=== PATIENT | male | born 1990 | race Caucasian/White ===

== ENCOUNTER 2021-03-10 12:25 | Emergency (ER) | payer BC ==
[2021-03-10 13:42] LABS: Absolute Lymphocytes (CBC) 1.9 K/uL (0.7-4.9); Basophils % 0.5 % (0-1.3); Hematocrit 46.8 % (39.6-49.0); Lymphocytes % 27.9 % (15.3-44.8); MPV 11.2 fL (7.6-11.3); RBC Red Blood Cell Count 5.21 M/uL (4.33-5.43)
[2021-03-10 13:43] LABS: Protime INR 0.99
[2021-03-10 14:00] LABS: ALT/SGPT 68 U/L (12-78); AST/SGOT 34 U/L (15-37); Albumin 4.2 g/dL (3.4-5.0); Alkaline Phosphatase 61 U/L (45-117); BUN Blood Urea Nitrogen 11 mg/dL (7-18); Bicarbonate 28 mmol/L (21-32); Bilirubin Direct 0.2 mg/dL (0-0.2); Bilirubin Total 0.6 mg/dL (0.2-1.0); Glucose Level 87 mg/dL (74-106); Magnesium 1.9 mg/dL (1.8-2.4); NT PRO-BNP 30 pg/mL (<125); Potassium 3.7 mmol/L (3.5-5.1); Protein, Total 8.6 g/dL (6.4-8.2); Sodium Level 142 mmol/L (136-145); Troponin (Emerg Dept Use Only) < 0.02 ng/mL (0.0-0.045)
--- NOTE | 2021-03-10 15:02 | RAD REPORT ---
EXAM DESCRIPTION: RAD - Chest Single View - 03/10/2021 2:26 pm CLINICAL HISTORY: CHEST PAIN COMPARISON: None TECHNIQUE: AP portable chest image was obtained 03/10/2021 2:26 pm . FINDINGS: Lungs are clear. Heart and vasculature are normal. No measurable pleural effusion and no p neumothorax. No acute bony abnormality seen. No acute aortic findings suspected. IMPRESSION: No acute cardiopulmonary process.
[2021-03-10] MEDS ORDERED: ASPIRIN 81 MG CHEWABLE TABLET ONE (17:55)
--- NOTE | 2021-03-10 18:12 | RAD REPORT ---
EXAM DESCRIPTION: CT - Head Brain Wo Cont - 03/10/2021 6:01 pm CLINICAL HISTORY: left sided weakness COMPARISON: No comparisons TECHNIQUE: Axial 5 mm thick images of the head were obtained without IV contrast. All CT scans are performed using dose optimization technique as appropriate and may include automated exposure control or mA/KV adjustment according to patient size. FINDINGS: No intracranial hemorrhage, mass, edema or shift of mid-line structures. No acute infarcti on changes seen. No abnormal extra-axial fluid collections. Ventricles are normal. Mastoid air cells and visualized portions of the paranasal sinuses are clear. No acute bony findings. IMPRESSION: Negative non-contrast CT head examination.
--- NOTE | 2021-03-10 18:33 | ER ---
Nurse's Notes [facility] Name: Melchor Thomas Age: 30 yrs Sex: Male : 1990 Arrival Date: 03/10/2021 Time: 12:27 Bed 6 Private MD: Diagnosis: Presentation: 03/10 12:47 Chief complaint: Friend and/or Co-Worker states: Left sided chest pain, non-radiating, jl7 started 1145, pt reports pain is gone but feels heart beating hard. Coronavirus screen: Client denies travel out of the [place] in the last 14 days. At this time, the client does not indicate any symptoms associated with coronavirus-19. Ebola Screen: No symptoms or risks identified at this time. Initial Sepsis Screen: Does the patient meet any 2 criteria? No. Patient's initial sepsis screen is negative. Does the patient have a suspected source of infection? No. Patient's initial sepsis screen is negative. Risk Assessment: Do you want to hurt yourself or someone else? Patient reports no desire to harm self or others. Onset of symptoms was March 10, 2021 at 11:45. Care prior to arrival: None. 12:47 Method Of Arrival: Wheelchair jl7 12:47 Acuity: ELZBIETA 2 jl7 Historical: - Allergies: 12:49 No Known Allergies; jl7 - Home Meds: 12:49 Allopurinol Oral [Active]; jl7 - PMHx: 12:49 Gout; jl7 - Immunization history:: Adult Immunizations unknown. - Social history:: Smoking status: Patient denies any tobacco usage or history of. Screenin:42 Abuse screen: Denies threats or abuse. Denies injuries from another. Nutritional kg screening: No deficits noted. Tuberculosis screening: No symptoms or risk factors identified. Fall Risk None identified. No fall in past 12 months (0 pts). No secondary diagnosis (0 pts). IV access (20 points). Ambulatory Aid- None/Bed Rest/Nurse Assist (0 pts). Gait- Normal/Bed Rest/Wheelchair (0 pts) Mental Status- Oriented to own ability (0 pts). Total Grant Fall Scale indicates No Risk (0-24 pts). Assessment: 17:38 General: Appears in no apparent distress. Behavior is calm, cooperative, appropriate kg for age, quiet. Pain: Denies pain. Pain does not radiate. Pain began. Neuro: Reports numbness in left side of head, left arm and left leg since 1200. Cardiovascular: No deficits noted. Heart tones S1 S2 Capillary refill < 3 seconds Pulses are all present. Rhythm is regular. Respiratory: No deficits noted. Airway is patent Respiratory effort is even, unlabored, relaxed, Respiratory pattern is regular, symmetrical, GI: No deficits noted. : No deficits noted. EENT: No deficits noted. Derm: No deficits noted. Vital Signs: 12:47 BP 122 / 88; Pulse 76; Resp 24; Temp 97.1; Pulse Ox 100% ; Weight 108.86 kg; Pain 0/10; jl7 17:00 BP 136 / 57; Pulse 56; Resp 20; Pulse Ox 97% on R/A; kg 18:00 BP 135 / 88; Pulse 53; Resp 20; Pulse Ox 97% on R/A; kg ED Course: 12:27 Patient arrived in ED. mr 12:49 Triage completed. jl7 12:49 Arm band placed on right wrist. jl7 14:26 XRAY Chest (1 view) In Process Unspecified. EDMS 17:09 Shari Cortes is Primary Nurse. kg 17:09 Kevyn Humphries PA is PHCP. deejay 17:09 Rigoberto Schmitz MD is Attending Physician. jmm 17:39 Inserted saline lock: 20 gauge in right antecubital area, using aseptic technique. kg 17:43 Patient has correct armband on for positive identification. Bed in low position. Call kg light in reach. Side rails up X2. color television console monitor on. Pulse ox on. NIBP on. 17:44 Patient maintains SpO2 saturation greater than 95% on room air. kg 18:01 CT Head Brain wo Cont In Process Unspecified. EDMS 18:30 No provider procedures requiring assistance completed. IV discontinued, intact, kg bleeding controlled, No redness/swelling at site. Pressure dressing applied. 19:05 Primary Nurse role handed off by Shari Cortes Administered Medications: 17:37 Drug: Aspirin Chewable Tablet 324 mg Route: PO; kg 18:15 Follow up: Response: No adverse reaction; Marked relief of symptoms kg Outcome: 18:31 AMA AMA form signed kg 18:31 Condition: stable 18:32 Patient left the ED. kg 19:20 Patient left the ED. ae4 Signatures: Dispatcher [employer] EDMS Kevyn Humphries PA PA jmm Rivera, Mary mr Davion Mason RN RN jl7 Radames Reynolds RN RN ae4 Shari Cortes kg
--- NOTE | 2021-03-10 18:33 | EDPHYS ---
Physician Documentation [facility] Name: Melchor Thomas Age: 30 yrs Sex: Male : 1990 Arrival Date: 03/10/2021 Time: 12:27 Bed 6 Private MD: ED Physician Rigoberto Schmitz HPI: 03/10 18:28 This 30 yrs old Male presents to ER via Wheelchair with complaints of Chest jm Pain, Slurred Speech. 18:28 The patient or guardian reports chest pain that is located primarily in the substernal [facility] area. 18:28 The patient presents with a history of heart racing. Onset: The symptoms/episode jmm began/occurred acutely, 4 hour(s) ago. Duration: The patient or guardian reports a single episode. Modifying factors: The symptoms are aggravated by nothing. The symptoms are alleviated by nothing. 19:08 This is a 30 year old male with no chronic medical conditions that presents to the ED jm with complaints of acute onset left arm paresthesias. Facial numbness beginning just prior to arrival. Also complains of difficulty with speech. . Historical: - Allergies: 12:49 No Known Allergies; jl7 - Home Meds: 12:49 Allopurinol Oral [Active]; jl7 - PMHx: 12:49 Gout; jl7 - Immunization history:: Adult Immunizations unknown. - Social history:: Smoking status: Patient denies any tobacco usage or history of. ROS: 19:08 Constitutional: Negative for fever, chills, and weight loss. jmm 19:08 Cardiovascular: Positive for palpitations. 19:08 Neuro: Positive for speech changes. 19:08 All other systems are negative. Exam: 19:08 Constitutional: This is a well developed, well nourished patient who is awake, alert, jmm and in no acute distress. Head/Face: atraumatic. Eyes: EOMI, no conjunctival erythema appreciated ENT: Moist Mucus Membranes Neck: Trachea midline, Supple Chest/axilla: Normal chest wall appearance and motion. Cardiovascular: Regular rate and rhythm. No edema appreciated Respiratory: Normal respirations, no respiratory distress appreciated Abdomen/GI: Non distended, soft Back: Normal ROM Skin: General appearance color normal MS/ Extremity: Moves all extremities, no obvious deformities appreciated, no edema noted to the lower extremities Neuro: Awake and alert, normal gait Psych: Behavior is normal, Mood is normal, Patient is cooperative and pleasant Vital Signs: 12:47 BP 122 / 88; Pulse 76; Resp 24; Temp 97.1; Pulse Ox 100% ; Weight 108.86 kg; Pain 0/10; jl7 17:00 BP 136 / 57; Pulse 56; Resp 20; Pulse Ox 97% on R/A; kg 18:00 BP 135 / 88; Pulse 53; Resp 20; Pulse Ox 97% on R/A; kg MDM: 17:24 Patient medically screened. vamsi 19:05 Data reviewed: vital signs, nurses notes. Counseling: I had a detailed discussion with deejay the patient and/or guardian regarding: the historical points, exam findings, and any diagnostic results supporting the discharge/admit diagnosis, lab results, the need for further work-up and treatment in the hospital. ED course: Dr. Schmitz contacted the patient. Will return for admission. . 03/10 12:57 Order name: Basic Metabolic Panel; Complete Time: 17:08 [facility] 03/10 12:57 Order name: CBC with Diff; Complete Time: 17:08 [facility] 03/10 12:57 Order name: LFT's; Complete Time: 17:08 [facility] 03/10 12:57 Order name: Magnesium; Complete Time: 17:08 [facility] 03/10 12:57 Order name: NT PRO-BNP; Complete Time: 17:08 03/10 12:57 Order name: PT-INR; Complete Time: 17:08 [facility] 03/10 12:57 Order name: Troponin (emerg Dept Use Only); Complete Time: 17:08 [facility] 03/10 12:57 Order name: XRAY Chest (1 view); Complete Time: 17:08 [facility] 03/10 12:57 Order name: EKG; Complete Time: 12:58 [facility] 03/10 12:57 Order name: Cardiac monitoring [facility] 03/10 12:57 Order name: EKG - Nurse/Tech; Complete Time: 12:58 [facility] 03/10 12:57 Order name: IV Saline Lock 03/10 17:26 Order name: CT Head Brain wo Cont; Complete Time: 18:13 [facility] 03/10 12:57 Order name: Labs collected and sent [facility] 03/10 12:57 Order name: O2 Per Protocol [facility] 03/10 12:57 Order name: O2 Sat Monitoring jl7 Administered Medications: 17:37 Drug: Aspirin Chewable Tablet 324 mg Route: PO; kg 18:15 Follow up: Response: No adverse reaction; Marked relief of symptoms kg Disposition: 03/11 07:31 Co-signature as Attending Physician, Rigoberto Schmitz MD I agree with the assessment and vamsi plan of care. Disposition: 03/10/21 18:32 Patient has left against medical advice. - Patients states they are going to Home. - Condition is Stable. Signatures: Dispatcher [employer] EDRigoberto Newton MD MD cha Mickail, Joel, PA PA jmm Leal, Jahala RN RN jl7 Radames Reynolds RN RN ae4 Shari Cortes kg Corrections: (The following items were deleted from the chart) 03/10 19:20 18:32 03/10/2021 18:32 Patients has left against medical advice. Patient states they ae4 are going to Home. Condition is Stable. kg
[2021-03-10 18:39] VITALS: TEMP 97.1
[2021-03-10 18:41] VITALS: O2SAT 97
[2021-03-10 18:42] VITALS: BP 135/88
--- NOTE | 2021-03-11 11:58 | EKG ---
Test Date: 2021-03-10 Test Time: 12:36:30 Ups Driver: NO MEASUREMENT RESULTS: Intervals: Rate: 86 [place]: QRSD: 170 QT: 448 QTc: 536 [place]: P: [place]: QRS: -48 T: 116 INTERPRETIVE STATEMENTS: Wide QRS rhythm Left axis deviation Left bundle branch block Abnormal ECG No previous ECG available for comparison Electronically Signed On 03-11-21 11:54:07 CDT by Yamil Tejeda
== END 2021-03-10 19:20 | disposition left against medical advice (07) ==
LOC: ER 12:25
DX: R07.9 Chest pain, unspecified (principal); Z53.29 Procedure and treatment not carried out because of patient's decision for other reasons; R47.81 Slurred speech; M10.9 Gout, unspecified
CPT/HCPCS: 36415; 70450; 71045; 80048; 80076; 83735; 83880; 84484; 85025; 85610; 93005; 99285

== ENCOUNTER 2021-03-10 19:22 | Observation (INO) | payer BC ==
--- OUTSIDE RECORDS SUMMARY | 2021-03-10 19:25 | XMS REPORT | Continuity of Care Document ---
:1990 Author Organization [facility] t Address [address] [place] [address] Care Team Providers Name Role Phone Jayda De La Rosa Attending Clinician Gerardo Attending Clinician Bari Nevarez Attending Clinician Problems Condition Condition Condition Status Onset Resolution Last Treating Co mments Source Name Details Category Date Date Treatment Clinician Date FLU LIKE Diagnosis Active 2019-01-30 M emoria 01-30 20:58:00 l FLU LIKE 00:00: Marco n 00 Active 01/30/2019 [facility] EAR PAIN Diagnosis Active 2019-01-09 M emoria 01-09 08:48:00 l EAR PAIN 00:00: Marco n 00 Active 01/09/2019 [facility] Ankle pain Problem Active 2021-02-20 M emoria (finding) 21:17:55 l Ankle [facility] pain (finding) Active Problem [facility] Family Problem Active 2021-02-20 [facility] history: 21:17:55 l Gout Family Crow (context-d history: ependent Gout category) (context-d ependent category) Active Problem 02/20/2021 [facility] Gastroesop Problem Active 2021-02-20 M emoria hageal 21:17:55 l reflux Crow disease Gastroesop (disorder) hageal reflux disease (disorder) Active Problem 02/20/2021 [facility] Gout Problem Active 2021-02-20 [facility] (disorder) 21:17:55 l Gout [facility] (disorder) Active Problem 02/20/2021 [facility] Hepatitis Problem Active 2021-02-20 Me moria B 21:17:55 l screening Crow required Hepatitis (finding) B screening required (finding) Active Problem 02/20/2021 [facility] Hyperurice Problem Active 2021-02-20 M emoria scott 21:17:55 l (disorder) Marco n Hyperurice scott (disorder) Active Problem 02/20/2021 [facility] Liver Problem Active 2021-02-20 [facility] enzymes 21:17:55 l abnormal Liver [facility] (finding) enzymes abnormal (finding) Active Problem 02/20/2021 [facility] Patient Problem Active 2021-02-20 Ge sarai encounter 21:17:55 l status Patient [facility] (finding) encounter status (finding) Active Problem 02/20/2021 [facility] Screening Problem Active 2021-02-20 Me moria status 21:17:55 l (finding) Crow Screening status (finding) Active Problem 02/20/2021 [facility] Simple Problem Active 2021-02-20 [facility] obesity 21:17:55 l (disorder) Simple Herm alok obesity (disorder) Active Problem 02/20/2021 [facility] Swollen Problem Active 2021-02-20 Ge sarai ankle 21:17:55 l (finding) Swollen Herm alok ankle (finding) Active Problem 02/20/2021 [facility] Viral Problem Active 2021-02-20 [facility] screening 21:17:55 l status Viral Crow (finding) screening status (finding) Active Problem 02/20/2021 [facility] Allergies, Adverse Reactions, Alerts Allergy Allergy Status Severity Reaction(s) Onset Inactive Treating Comm ents Source Name Type Date Date Clinician No Known No Known Active Memori a Medicati Medicati l on on Crow Allergie Allergie s s Social History Social Habit Start Date Stop Date Quantity Comments Source Social History 2020-08-06 2020-08-06 Theo goodman 15:12:12 15:12:12 Smoking Status Start Date Stop Date Source Social [facility] Medications Ordered Filled Start Stop Current Ordering Indication Dosage Frequency Signature Comments Components Source Medication Medication Date Date Medication? Clinician (SIG) Name Name Colchicine 2019-10 Yes 0.6 mg = 1 M emoria 0.6 MG Oral 2-07 tab, PO, l Tablet 18:33: PRN, PRN Crow 00 Pain Score 7-10, # 30 tab, 3 Refill(s), Pharmacy: [facility] #[id number], 190.5, cm, 08/20/20 7:23:00 FRONT OFFICE SPEC, Height, 110.625, kg, 08/20/20 7:23:00 FRONT OFFICE SPEC, Weight Colchicine 2019-10 Yes 0.6 mg = 1 M emoria 0.6 MG Oral 2-03 cap, PO, l Capsule 17:28: PRN, PRN Marco n 00 Pain Score 7-10, Take 1.2 mg poX1, then 0.6 mg po 1 hour later X1, # 30 tab, 0 Refill(s), Pharmacy: [facility] #[id number], 190.5, cm, 08/20/20 7:23:00 FRONT OFFICE SPEC, Height, 110.625, kg, 08/20/20 7:23:00 FRONT OFFICE SPEC, Weight Colchicine 2019-10 Yes 0.6 mg = 1 M emoria 0.6 MG Oral 0-28 cap, PO, l Capsule 15:52: PRN, PRN Marco n 00 Pain Score 7-10, Take 1.2 mg poX1, then 0.6 mg po 1 hour later X1, # 30 tab, 0 Refill(s), Pharmacy: [facility] #[id number], 187.96, cm, 08/06/20 10:05:00 CDT, Height, 110.142, kg, 08/06/20 10:05:00 CDT, Weight omeprazole 2019-10 Yes 40 mg = 1 Me moria 40 mg oral 0-28 cap, PO, l delayed 15:52: Daily, # Marco n release 00 30 cap, 1 capsule Refill(s), Pharmacy: [facility] #[id number], 187.96, cm, 08/06/20 10:05:00 CDT, Height, 110.142, kg, 08/06/20 10:05:00 CDT, Weight indomethaci 2019-10 Yes 25 mg = 1 M emoria n 25 mg 0-28 cap, PO, l oral 15:14: TID, 0 Crow capsule 00 Refill(s) Dexamethaso No 10 mg, Ge sarai ne 01-09 Route: IM, l 13:42: ONCE, [facility] 00 Dosing Weight 106.818, kg, Priority: STAT, Start date: 01/09/19 8:42:00 CDT, Stop date: 01/09/19 8:42:00 CDT Ibuprofen 2019-0 No 800 mg, Memor ia 01-09 Route: PO, l 13:42: Drug form: Castell 00 TAB, ONCE, Dosing Weight 106.818, kg, Priority: STAT, Start date: 01/09/19 8:42:00 CDT, Stop date: 01/09/19 8:42:00 CDT Vital Signs Vital Name Observation Time Observation Value Comments Source Systolic (mm Hg) 2020-08-20 13:18:00 Ge rial Crow Diastolic (mm Hg) 2020-08-20 13:18:00 Mem o[facility] Crow Heart Rate 2020-08-20 13:18:00 [facility] Temperature Oral (F) 2020-08-20 13:18:00 97.2 F [facility] Height 2020-08-20 13:18:00 190.5 cm [facility] Weight 2020-08-20 13:18:00 [facility] BMI Calculated 2020-08-20 13:18:00 Memori al Crow Systolic (mm Hg) 2020-08-06 14:56:00 Ge rial Castell Diastolic (mm Hg) 2020-08-06 14:56:00 Mem o[facility] Crow Heart Rate 2020-08-06 14:56:00 [facility] Temperature Oral (F) 2020-08-06 14:56:00 97.2 F [facility] Height 2020-08-06 14:56:00 187.96 cm [facility] Weight 2020-08-06 14:56:00 [facility] BMI Calculated 2020-08-06 14:56:00 [facility] BMI Calculated 2019-01-31 01:47:00 [facility] Weight 2019-01-31 01:47:00 [facility] Height 2019-01-31 01:47:00 187.96 cm [facility] Systolic (mm Hg) 2019-01-31 01:47:00 Ge rial [facility] Diastolic (mm Hg) 2019-01-31 01:47:00 Mem o[facility] Heart Rate 2019-01-31 01:47:00 [facility] Respitory Rate 2019-01-31 01:47:00 [facility] Temperature Oral (F) 2019-01-31 01:47:00 98.3 F [facility] Heart Rate 2019-01-09 13:21:00 [facility] Systolic (mm Hg) 2019-01-09 13:21:00 Ge rial [facility] Diastolic (mm Hg) 2019-01-09 13:21:00 [facility] Weight 2019-01-09 13:09:00 [facility] BMI Calculated 2019-01-09 13:09:00 [facility] Respitory Rate 2019-01-09 13:09:00 [facility] Temperature Oral (F) 2019-01-09 13:09:00 98.4 F [facility] Height 2019-01-09 13:09:00 187.96 cm [facility] Heart Rate 2019-01-09 13:09:00 [facility] Systolic (mm Hg) 2019-01-09 13:09:00 Ge rial [facility] Diastolic (mm Hg) 2019-01-09 13:09:00 Mem o[facility] Procedures This patient has no known procedures. Encounters Start End Encounter Admission Attending Care Care Encounter Source Date/Time Date/Time Type Type Clinicians Facility Department ID 2021-02-18 2021-02-18 Outpatient [facility] [id number] 08:00:00 08:00:00 Felton Beckwith 2020-09-15 2020-09-16 Outpatient [facility] [id number] 10:55:25 23:59:59 2020-09-11 2020-09-12 Outpatient [facility] [id number] 10:57:02 23:59:59 2020-08-20 2020-08-20 Outpatient [facility] [id number] 07:00:00 23:59:59 Amena Lillian Montelongo 2020-08-06 2020-08-06 Outpatient [facility] [id number] 09:30:00 23:59:59 Yao Beckwith 2019-01-30 2019-01-30 Outpatient Aznaalphonsova-A [facility] [id number] 20:20:00 20:52:00 clarissa Brandon Naomi 2019-01-30 2019-01-30 Emergency E [facility] [id number] [facility] 20:20:00 20:20:00 2019-01-09 2019-01-09 LARRY Farley [facility] [id number] 08:04:00 09:10:00 Valentin Roche 00 Results Test Description Test Time Test Comments Results Result Comments Source CHEM PANEL 2020-08-06 77 [facility] 16:20:00 CHEM PANEL 2020-08-06 15 [facility] 16:20:00 CHEM PANEL 2020-08-06 0.95 [facility] nn 16:20:00 CHEM PANEL 2020-08-06 106 [facility] nn 16:20:00 CHEM PANEL 2020-08-06 123 [facility] nn 16:20:00 CHEM PANEL 2020-08-06 141 [facility] 16:20:00 CHEM PANEL 2020-08-06 4.9 [facility] nn 16:20:00 CHEM PANEL 2020-08-06 103 [facility] nn 16:20:00 CHEM PANEL 2020-08-06 28 [facility] nn 16:20:00 CHEM PANEL 2020-08-06 9.5 [facility] nn 16:20:00 CHEM PANEL 2020-08-06 7.6 [facility] 16:20:00 CHEM PANEL 2020-08-06 4.5 [facility] 16:20:00 CHEM PANEL 2020-08-06 3.1 [facility] nn 16:20:00 CHEM PANEL 2020-08-06 1.5 [facility] nn 16:20:00 CHEM PANEL 2020-08-06 0.7 [facility] nn 16:20:00 CHEM PANEL 2020-08-06 49 [facility] nn 16:20:00 CHEM PANEL 2020-08-06 55 [facility] nn 16:20:00 CHEM PANEL 2020-08-06 47 [facility] nn 16:20:00 CHEM PANEL 2020-08-06 9.3 [facility] nn 16:20:00 HEMATOLOGY 2020-08-06 5.6 [facility] nn 16:20:00 HEMATOLOGY 2020-08-06 5.17 [facility] nn 16:20:00 HEMATOLOGY 2020-08-06 15.6 [facility] nn 16:20:00 HEMATOLOGY 2020-08-06 45.9 [facility] nn 16:20:00 HEMATOLOGY 2020-08-06 88.8 [facility] nn 16:20:00 HEMATOLOGY 2020-08-06 16:20:00 Test Item Value Reference Range Interpretation Comme nts MCH (test code = MCH) 30.2 pg 27.0-33.0 [facility] [id number] 16:20:0034.0[facility] 2020-08-06 16:20:0013.0[facility] DtexzfuCIVQZFGHTT7108-07-03 16:20:85825Aenypqpv HyroojbLQFRBHLURX0532-44-67 16:20:0013.3[facility] KpptyvrIWCDDJPYMA0337-23-38 16:20:371234Rqdkkudx QengmdcURWRYSRBHR2918-81-55 16:20:044903Vwwivtcf [facility] FPLONAZXNT9746-51-00 16:20:87087Iqrzzbnk FouvcyyDYWVGXOZQK9332-80-59 16:20:35626 [facility] MiwdzbzBRUAHXLHSP0201-89-98 16:20:0028[facility]Y 2020-08-06 16:20:0055.9[facility] QdrrouhZPYHEAFMAG5562-56-27 16:20:0030.7[facility] ZelmcxuXFFXRBWNXD0524-41-65 16:20:008.3[facility] RjnynypLXKSGIBRVL1416-79-44 16:20:004.6[facility] UfzioaqUUFUGMBXHF6700-02-36 16:20:000.5[facility] Crow
--- NOTE | 2021-03-10 20:29 | EDPHYS ---
Physician Documentation [facility] Name: Melchor Thomas Age: 30 yrs Sex: Male : 1990 Arrival Date: 03/10/2021 Time: 19:25 Bed 25 Private MD: ED Physician Dany Purvis HPI: 03/10 19:36 This 30 yrs old Male presents to ER via Unassigned with complaints of S/S of jmm Possible Stroke. 19:36 The patient's problem is reported as paresthesias, in left upper extremity, in right jmm side of face, in left side of face, weakness, in the left upper extremity. Onset: The symptoms/episode began/occurred acutely, today. The symptoms are alleviated by nothing. The symptoms are aggravated by nothing. Associated signs and symptoms: Pertinent positives: palpitations. This is a 30 year old male with no chronic medical conditions that presents to the ED with left sided paresthesias, numbness beginning earlier today. Also symptoms began after an episode of palpitations. . Historical: - Allergies: 23:38 No Known Allergies; - Home Meds: 23:38 Allopurinol Oral [Active]; - PMHx: 23:38 Gout; - Immunization history:: Adult Immunizations not up to date. - Social history:: Smoking status: Patient denies any tobacco usage or history of. ROS: 19:36 Constitutional: Negative for fever, chills, and weight loss. [facility] 19:36 Cardiovascular: Positive for palpitations. 19:36 All other systems are negative. Exam: 19:36 Radiologist reports: negative [facility] 19:36 Constitutional: This is a well developed, well nourished patient who is awake, alert, and in no acute distress. Head/Face: atraumatic. Eyes: EOMI, no conjunctival erythema appreciated ENT: Moist Mucus Membranes Neck: Trachea midline, Supple Chest/axilla: Normal chest wall appearance and motion. Cardiovascular: Regular rate and rhythm. No edema appreciated Respiratory: Normal respirations, no respiratory distress appreciated Abdomen/GI: Non distended, soft Back: Normal ROM Skin: General appearance color normal MS/ Extremity: Moves all extremities, no obvious deformities appreciated, no edema noted to the lower extremities Neuro: Awake and alert, normal gait Psych: Behavior is normal, Mood is normal, Patient is cooperative and pleasant Vital Signs: 19:40 BP 122 / 62; Pulse 50; Resp 18; Temp 97.8; Height 6 ft. 3 in. (190.50 cm); Pain 0/10; 20:45 Weight 113.2 kg; 23:00 BP 124 / 79; Pulse 50; Resp 18; Pulse Ox 98% on R/A; 19:40 Body Mass Index 31.19 (113.20 kg, 190.50 cm) NIH Stroke Scale Scores: 19:45 NIHSS Score: 0 21:00 NIHSS Score: 0 MDM: 19:33 Patient medically screened. [facility] 20:26 Data reviewed: vital signs, nurses notes. Counseling: I had a detailed discussion with deejay the patient and/or guardian regarding: the historical points, exam findings, and any diagnostic results supporting the discharge/admit diagnosis, the need for further work-up and treatment in the hospital. ED course: Patient discussed with Emil Huff whom accepted the patient for admission. . 03/10 20:11 Order name: Urine Drug Screen [facility] 03/10 20:28 Order name: COVID-19 : Document "Date of Symptom Onset" if Symptomatic. [facility] 03/10 20:56 Order name: Ptt, Activated 03/10 20:57 Order name: PTT, Activated Partial Thromb [facility] 03/10 21:49 Order name: Urine Dipstick-Ancillary [facility] 03/10 22:15 Order name: SARS-COV-2 RT PCR [facility] 03/10 23:37 Order name: Echo with Doppler [facility] 03/10 23:37 Order name: Stroke Protocol [facility] 03/10 23:37 Order name: Carotid Artery Bilateral [facility] 03/10 20:06 Order name: Saline Lock; Complete Time: 20:20 [facility] 03/10 20:11 Order name: Urine Dipstick-Ancillary (obtain specimen); Complete Time: 21:51 [facility] 03/10 23:31 Order name: CONS Physician Consult [facility] Administered Medications: 20:56 Drug: foLIC Acid 1 mg Route: IVPB; Site: left antecubital; 03/11 00:46 Follow up: Response: No adverse reaction; IV Status: Completed infusion 03/10 20:57 Drug: NS 0.9% 1000 ml Route: IV; Rate: 1 bolus; Site: left antecubital; 03/11 00:46 Follow up: Response: No adverse reaction; IV Status: Completed infusion 03/10 21:05 Drug: HEParin 5000 units {Co-Signature: ap3 (Kinga Ovalle RN).} Route: IV; Rate: wh calculated rate; Site: left antecubital; 03/11 00:47 Follow up: Response: No adverse reaction; IV Status: Completed infusion 03/10 21:07 Drug: Heparin ([place] Drip) 12 units/kg/hr - (HEParin 99677 units, D5W 500 ml) {Co-Signature: ap3 (Kinga Ovalle RN).} Route: IV; Rate: calculated rate; Site: left antecubital; 03/11 00:47 Follow up: Response: No adverse reaction; IV Status: Infusion continued upon admission Disposition: 05:53 Co-signature as Attending Physician, Dany Purvis MD. rn Disposition: 03/10/21 20:28 Hospitalization ordered by Javon Aguilar for Observation. Preliminary diagnosis are Palpitations, Paresthesias. - Bed requested for Telemetry/MedSurg (observation). - Status is Observation. - Condition is Stable. - Problem is new. - Symptoms have improved. NIH Stroke Scale - NIH Stroke Score Date: 03/10/2021 Time: 19:45 Total Score = 0 1a. Level of Consciousness (LOC) - 0(Alert) 1b. Level of Consciousness (LOC) (Year \\T\\ Age) - 0(Both) 1c. LOC Commands (Open \\T\\ Closes Eyes/Real Estate Closing Coordinator) - 0(Both) 2. Best Gaze (Lateral Gaze Paresis) - 0(Normal) 3. Visual Field Loss - 0(No visual loss) 4. Facial Palsy - 0(Normal) 5a. Left Arm: Motor (10-second hold) - 0(No drift) 5b. Right Arm: Motor (10-second hold) - 0(No drift) 6a. Left Leg: Motor (5-second hold - always test supine) - 0(No drift) 6b. Right Leg: Motor (5-second hold - always test supine) - 0(No drift) 7. Limb Ataxia (finger/nose \\T\\ heel/hwang - test with eyes open) - 0(Absent) 8. Sensory Loss (pinprick arms/legs/face) - 0(Normal) 9. Best Language: Aphasia (description/naming/reading) - 0(No aphasia) 10. Dysarthria (speech clarity - read or repeat words) - 0(Normal) 11. Extinction and Inattention (visual/tactile/auditory/spatial/personal) - 0(No abnormality) Initials: NIH Stroke Scale - NIH Stroke Score Date: 03/10/2021 Time: 21:00 Total Score = 0 1a. Level of Consciousness (LOC) - 0(Alert) 1b. Level of Consciousness (LOC) (Year \\T\\ Age) - 0(Both) 1c. LOC Commands (Open \\T\\ Closes Eyes/Real Estate Closing Coordinator) - 0(Both) 2. Best Gaze (Lateral Gaze Paresis) - 0(Normal) 3. Visual Field Loss - 0(No visual loss) 4. Facial Palsy - 0(Normal) 5a. Left Arm: Motor (10-second hold) - 0(No drift) 5b. Right Arm: Motor (10-second hold) - 0(No drift) 6a. Left Leg: Motor (5-second hold - always test supine) - 0(No drift) 6b. Right Leg: Motor (5-second hold - always test supine) - 0(No drift) 7. Limb Ataxia (finger/nose \\T\\ heel/hwang - test with eyes open) - 0(Absent) 8. Sensory Loss (pinprick arms/legs/face) - 0(Normal) 9. Best Language: Aphasia (description/naming/reading) - 0(No aphasia) 10. Dysarthria (speech clarity - read or repeat words) - 0(Normal) 11. Extinction and Inattention (visual/tactile/auditory/spatial/personal) - 0(No abnormality) Initials: Signatures: Dispatcher [employer] EDMS Kevyn Humphries PA PA Dany Rivera MD MD rn Garcia, Cindy, RN RN cg Habalo, Winsy, RN RN Kinga Ovalle RN ap3 Corrections: (The following items were deleted from the chart) 03/10 20:36 20:28 Hospitalization Ordered by Mitch De La Vega MD for Observation. Preliminary [facility] diagnosis is Palpitations; Paresthesias. Bed requested for Telemetry/MedSurg (observation). Status is Observation. Condition is Stable. Problem is new. Symptoms have improved. [facility] 21:17 20:29 CORONAVIRUS ordered. EDMS EDMS 03/11 00:22 06 20:36 03/10/2021 20:28 Hospitalization Ordered by Javon Aguilar for Observation. Preliminary diagnosis is Palpitations; Paresthesias. Bed requested for Telemetry/MedSurg (observation). Status is Observation. Condition is Stable. Problem is new. Symptoms have improved. [facility] 03/11 00:58 00:22 03/10/2021 20:28 Hospitalization Ordered by Javon Aguilar for Observation. Preliminary diagnosis is Palpitations; Paresthesias. Bed requested for Telemetry/MedSurg (observation). Status is Observation. Condition is Stable. Problem is new. Symptoms have improved. cg
[2021-03-10] MEDS ORDERED: HEPARIN 5000 UNIT/ML 1 ML VIAL ONE (21:11)
[2021-03-10] MEDS ORDERED: HEPARIN/D5W 25,000 UNIT/500 ML BAG IV ONE (21:11)
[2021-03-10] MEDS ORDERED: NA CHLORIDE 0.9% 1,000 ML ONE (21:12)
[2021-03-10] MEDS ORDERED: FOLIC ACID 5 MG/ML VIAL ONE (21:13)
[2021-03-10 21:50] LABS: Urine Blood Negative (Negative); Urine Glucose Negative (Negative); Urine Protein Negative (Negative); Urine pH 7.5 (5.0-7.0)
[2021-03-10 22:15] LABS: Barbiturates NEGATIVE (NEGATIVE); Benzodiazepines NEGATIVE (NEGATIVE); Cocaine NEGATIVE (NEGATIVE); METHAMPHETAM NEGATIVE (NEGATIVE); Methadone NEGATIVE (NEGATIVE); Opiates NEGATIVE (NEGATIVE); Phencyclidine NEGATIVE (NEGATIVE); THC Cannibis NEGATIVE (NEGATIVE)
[2021-03-10] MEDS ORDERED: HEPARIN/D5W 25,000 UNIT/500 ML BAG IV SCH (23:45)
--- NOTE | 2021-03-11 00:59 | ER ---
Nurse's Notes [facility] Name: Melchor Thomas Age: 30 yrs Sex: Male : 1990 Arrival Date: 03/10/2021 Time: 19:25 Bed 25 Private MD: Diagnosis: Palpitations;Paresthesias Presentation: 03/10 19:40 Chief complaint: Pt was here earlier advised for admission but Pt signed AMA. Pt was C/O lightheartedness, numbness, weakness on left side, slurred speech, and palpitations. 19:40 Coronavirus screen: Client denies travel out of the [place] in the last 14 days. At this time, the client does not indicate any symptoms associated with coronavirus-19. Ebola Screen: Patient negative for fever greater than or equal to 101.5 degrees Fahrenheit, and additional compatible Ebola Virus Disease symptoms Patient denies exposure to infectious person. No acute neurological deficit is noted. Pre-hospital glucose is not applicable to this patient. Initial Sepsis Screen: Does the patient meet any 2 criteria? No. Patient's initial sepsis screen is negative. Does the patient have a suspected source of infection? No. Patient's initial sepsis screen is negative. Risk Assessment: Do you want to hurt yourself or someone else? Patient reports no desire to harm self or others. Onset of symptoms was March 10, 2021. 19:40 Method Of Arrival: Ambulatory 19:40 Acuity: ELZBIETA 3 Historical: - Allergies: 23:38 No Known Allergies; - Home Meds: 23:38 Allopurinol Oral [Active]; - PMHx: 23:38 Gout; - Immunization history:: Adult Immunizations not up to date. - Social history:: Smoking status: Patient denies any tobacco usage or history of. Screenin:45 Abuse screen: Denies threats or abuse. Denies injuries from another. Nutritional screening: No deficits noted. Tuberculosis screening: No symptoms or risk factors identified. VAN Screening: Arm Drift: Patient shows no arm weakness. Visual Disturbance: No visual disturbance noted. Aphasia: No aphasia noted. Neglect: No neglect noted. Fall Risk None identified. Assessment: 19:50 VAN Scoring: Arm Drift: Patients demonstrates NO arm weakness. Patient is VAN Negative. Visual Disturbance: No visual disturbance noted. Aphasia: No aphasia noted. Neglect: No neglect noted. 20:00 General: Appears in no apparent distress. Behavior is calm, cooperative, appropriate wh for age. Pain: Denies pain. Neuro: Level of Consciousness is awake, alert, obeys commands, Oriented to person, place, time, situation, Appropriate for age Rhinestone Setter are equal bilaterally Moves all extremities. Gait is steady, Speech is normal, Facial symmetry appears normal, Pupils are PERRLA, Intact. Neuro: Reports paresthesias. Cardiovascular: Heart tones S1 S2. Respiratory: Airway is patent Respiratory effort is even, unlabored, Respiratory pattern is regular, symmetrical, Breath sounds are clear bilaterally. GI: Abdomen is flat, non-distended. : No signs and/or symptoms were reported regarding the genitourinary system. EENT: No signs and/or symptoms were reported regarding the EENT system. Derm: Skin is intact, is healthy with good turgor, Skin is pink, warm \T\ dry. normal. Musculoskeletal: Circulation, motion, and sensation intact. 21:00 Patient has been NPO before screening. The patient is alert, and able to follow commands. The patient does not exhibit slurred or garbled speech. The patient is not exhibiting difficulty speaking. The patient does not exhibit difficulty understanding words. The patient is able to swallow own secretions with no drooling or need for suction. Patient tolerated one teaspoon of water. No drooling, immediate coughing, gurgling, or clearing of the throat was noted. The patient tolerated 90mL of water. No drooling, immediate coughing, gurgling, or clearing of the throat was noted. The patient passed the bedside swallow screening. Oral medications may be given as ordered. Contact Physician for further diet orders. Provider notified of bedside swallow screening results: Dany Purvis MD. T-PA (Activase) Screening:. 21:00 Reassessment: Patient appears in no apparent distress at this time. No changes from previously documented assessment. Patient and/or family updated on plan of care and expected duration. Pain level reassessed. Patient is alert, oriented x 3, equal unlabored respirations, skin warm/dry/pink. 23:15 Reassessment: PTT was drawn at 2100 prior to starting Heparin drip, around 2200 Lab notified for a redraw, redraw was done but Heparin Bolus was already given and drip was running for an hour already. 22:50 Lab alert on PTT of 155.7, notified MD regarding when the redraw was taken, and MD instructed to just follow protocol. Per Protocol Pt was running on 20 ml/hr, adjusted to 16 ml/hr. Repeat PTT to be done at 1:00 am. Hospitalist Emil notified. . 23:30 Reassessment: Patient appears in no apparent distress at this time. Provider at bedside explaining POC need for admit. Vital Signs: 19:40 BP 122 / 62; Pulse 50; Resp 18; Temp 97.8; Height 6 ft. 3 in. (190.50 cm); Pain 0/10; 20:45 Weight 113.2 kg; 23:00 BP 124 / 79; Pulse 50; Resp 18; Pulse Ox 98% on R/A; 19:40 Body Mass Index 31.19 (113.20 kg, 190.50 cm) NIH Stroke Scale Scores: 19:45 NIHSS Score: 0 21:00 NIHSS Score: 0 ED Course: 19:25 Patient arrived in ED. am4 19:32 Kevyn Humphries PA is PHCP. [facility] 19:32 Dany Purvis MD is Attending Physician. [facility] 20:00 Arm band placed on right wrist. 20:00 Patient has correct armband on for positive identification. Bed in low position. Call light in reach. Side rails up X 1. court monitor on. Pulse ox on. NIBP on. 20:00 Inserted saline lock: 20 gauge in left antecubital area, using aseptic technique. Blood collected. 20:10 Ana Nova, CRISTIANO is Primary Nurse. 20:27 Mitch De La Vega MD is Hospitalizing Provider. [facility] 20:36 Javon Aguilar is Hospitalizing Provider. [facility] 23:36 Triage completed. 03/11 00:45 No provider procedures requiring assistance completed. Patient admitted, IV remains in place. Administered Medications: 03/10 20:56 Drug: foLIC Acid 1 mg Route: IVPB; Site: left antecubital; 03/11 00:46 Follow up: Response: No adverse reaction; IV Status: Completed infusion 03/10 20:57 Drug: NS 0.9% 1000 ml Route: IV; Rate: 1 bolus; Site: left antecubital; 03/11 00:46 Follow up: Response: No adverse reaction; IV Status: Completed infusion 03/10 21:05 Drug: HEParin 5000 units {Co-Signature: ap3 (Kinga Ovalle RN).} Route: IV; Rate: calculated rate; Site: left antecubital; 03/11 00:47 Follow up: Response: No adverse reaction; IV Status: Completed infusion 03/10 21:07 Drug: Heparin ([place] Drip) 12 units/kg/hr - (HEParin 40516 units, D5W 500 ml) {Co-Signature: ap3 (Kinga Ovalle RN).} Route: IV; Rate: calculated rate; Site: left antecubital; 03/11 00:47 Follow up: Response: No adverse reaction; IV Status: Infusion continued upon admission Outcome: 03/10 20:28 Decision to Hospitalize by Provider. deejay 03/11 00:45 Admitted to Med/surg accompanied by tech, family with patient, via wheelchair, room 209, with chart, Report called to Claribel QUINONEZ Condition: stable Instructed on the need for admit. 00:58 Patient left the ED. NIH Stroke Scale - NIH Stroke Score Date: 03/10/2021 Time: 19:45 Total Score = 0 1a. Level of Consciousness (LOC) - 0(Alert) 1b. Level of Consciousness (LOC) (Year \T\ Age) - 0(Both) 1c. LOC Commands (Open \T\ Closes Eyes/Machine Welt Butter) - 0(Both) 2. Best Gaze (Lateral Gaze Paresis) - 0(Normal) 3. Visual Field Loss - 0(No visual loss) 4. Facial Palsy - 0(Normal) 5a. Left Arm: Motor (10-second hold) - 0(No drift) 5b. Right Arm: Motor (10-second hold) - 0(No drift) 6a. Left Leg: Motor (5-second hold - always test supine) - 0(No drift) 6b. Right Leg: Motor (5-second hold - always test supine) - 0(No drift) 7. Limb Ataxia (finger/nose \T\ heel/hwang - test with eyes open) - 0(Absent) 8. Sensory Loss (pinprick arms/legs/face) - 0(Normal) 9. Best Language: Aphasia (description/naming/reading) - 0(No aphasia) 10. Dysarthria (speech clarity - read or repeat words) - 0(Normal) 11. Extinction and Inattention (visual/tactile/auditory/spatial/personal) - 0(No abnormality) Initials: NIH Stroke Scale - NIH Stroke Score Date: 03/10/2021 Time: 21:00 Total Score = 0 1a. Level of Consciousness (LOC) - 0(Alert) 1b. Level of Consciousness (LOC) (Year \T\ Age) - 0(Both) 1c. LOC Commands (Open \T\ Closes Eyes/Machine Welt Butter) - 0(Both) 2. Best Gaze (Lateral Gaze Paresis) - 0(Normal) 3. Visual Field Loss - 0(No visual loss) 4. Facial Palsy - 0(Normal) 5a. Left Arm: Motor (10-second hold) - 0(No drift) 5b. Right Arm: Motor (10-second hold) - 0(No drift) 6a. Left Leg: Motor (5-second hold - always test supine) - 0(No drift) 6b. Right Leg: Motor (5-second hold - always test supine) - 0(No drift) 7. Limb Ataxia (finger/nose \T\ heel/hwang - test with eyes open) - 0(Absent) 8. Sensory Loss (pinprick arms/legs/face) - 0(Normal) 9. Best Language: Aphasia (description/naming/reading) - 0(No aphasia) 10. Dysarthria (speech clarity - read or repeat words) - 0(Normal) 11. Extinction and Inattention (visual/tactile/auditory/spatial/personal) - 0(No abnormality) Initials: Signatures: Kevyn Humphries PA PA jmm Habalo, Winsy, RN RN Ashley Gregory am4 Kinga Ovalle RN ap3
[2021-03-11] MEDS ORDERED: ACETAMINOPHEN 500 MG TAB PO PRN (01:28)
[2021-03-11] MEDS ORDERED: ONDANSETRON 4 MG/2 ML VIAL IV PRN (01:28)
[2021-03-11 02:42] VITALS: BMI 31.1
--- NOTE | 2021-03-11 03:58 | P.HP ---
Certification for Inpatient Patient admitted to: Observation With expected LOS: <2 Midnights Patient will require the following post-hospital care: None Practitioner: I am a practitioner with admitting privileges, knowledge of patient current condition, hospital course, and medical plan of care. Services: Services provided to patient in accordance with Admission requirements found in Title 42 Section 412.3 of the Code of Federal Regulations Patient History Date of Service: 03/11/21 Reason for admission: presyncope History of Present Illness: Mr. Frazier is a 30 yo M who presents after an episode of left sided numbness and weakness today. He was on his way to lunch today with friends when he became lightheaded, dizzy, SOB, and palpitations. He says over 30 minutes the symptoms worsened. Then his left arm, face and lips became numb and his R hand and arm began to shake, then his entire body began to shake. He said his left eye was difficult to open. His speech was slurred and it was difficult for him to get words out. He said the entire episode lasted 2 hours. Now he feels back to baseline besides fatigue. His initial EKG was abnormal, but repeat EKG was wnl. Allergies No Known Allergies Allergy (Unverified 03/11/21 00:50) Home Medications: Allopurinol 300 mg PO DAILY PRN 03/11/21 - Past Medical/Surgical History Has patient received pneumonia vaccine in the past: No Diabetic: No -: gout Past Surgical History: Patient denies surgical history - Family History Father Notes: , brain tumor ( in 20s) Mother -: Seizures Notes: hx: alcohol, smoking, drugs - Social History Smoking Status: Never smoker Alcohol use: Yes CD- Drugs: No Caffeine use: Yes Place of Residence: Home Review of Systems General: As per HPI Eyes: Unremarkable ENT: Unremarkable Respiratory: Shortness of Breath, As per HPI Cardiovascular: Palpitations, Light Headedness, As per HPI Gastrointestinal: Unremarkable Genitourinary: Unremarkable Musculoskeletal: Unremarkable Integumentary: Unremarkable Neurological: Weakness, Numbness, Change in Speech, Confusion, As per HPI Lymphatics: Unremarkable Physical Examination - Vital Signs Temperature: 97.2 F Blood Pressure: 115/56 Pulse: 50 Respirations: 18 Pulse Ox (%): 98 - Physical Exam General: Alert, In no apparent distress, Oriented x3, Cooperative HEENT: Atraumatic, Normocephalic, PERRLA, Mucous membr. moist/pink, EOMI, Sclerae nonicteric Neck: Supple, 2+ carotid pulse no bruit, JVD not distended, No Thyromegaly, No LAD Respiratory: Clear to auscultation bilaterally, Normal air movement Cardiovascular: No edema, Normal pulses, Regular rate/rhythm, Normal S1 S2, No gallops, No rubs, No murmurs Capillary refill: <2 Seconds Gastrointestinal: Normal bowel sounds, Soft and benign, Non-distended, No ascites, No tenderness, No masses, No rebound, No guarding Musculoskeletal: No clubbing, No swelling, No contractures, No erythema, No tenderness, No warmth Integumentary: No rashes, No breakdown, No significant lesion, No tenderness/swelling, No erythema, No warmth, No cyanosis Neurological: Normal speech, Normal strength at 5/5 x4 extr, Normal tone, Sensation intact, Cranial nerves 3-12 intact, Normal affect Lymphatics: No axilla or inguinal lymphadenopathy - Studies Laboratory Data (last 24 hrs) 03/10/21 21:53: APTT 155.7 H* Assessment and Plan - Plan Assessment Left sided weakness and numbness, presyncope Plan Cardiology consulted, neurology consulted continue heparin drip ECHO and carotid U/S in the AM MRI stroke protocol in the AM daily aspirin, folic acid, statin lipid panel pending on telemetry Discharge Plan: Home Plan to discharge in: 24 Hours - Advance Directives Does patient have a Living Will: No Does patient have a Durable POA for Healthcare: No - Code Status/Comfort Care Code Status Assessed: Yes (full code) Critical Care: No Time Spent Managing Pts Care (In Minutes): 70
[2021-03-11 06:12] LABS: Absolute Lymphocytes (CBC) 1.8 K/uL (0.7-4.9); Basophils % 0.7 % (0-1.3); Hematocrit 43.5 % (39.6-49.0); Lymphocytes % 27.5 % (15.3-44.8); MPV 11.4 fL (7.6-11.3); RBC Red Blood Cell Count 4.81 M/uL (4.33-5.43)
[2021-03-11 06:35] LABS: Albumin 3.6 g/dL (3.4-5.0); Bilirubin Total 0.6 mg/dL (0.2-1.0); Magnesium 2.2 mg/dL (1.8-2.4); Phosphorus 2.6 mg/dL (2.5-4.9); Potassium 4.2 mmol/L (3.5-5.1); Protein, Total 7.2 g/dL (6.4-8.2); Thyroid Stimulating Hormone 2.22 uIU/mL (0.360-3.740)
[2021-03-11] MEDS ORDERED: FOLIC ACID 1 MG TABLET PO SCH (09:00)
[2021-03-11] MEDS ORDERED: BEVACIZUMAB 25 MG/ML ONE (09:28)
[2021-03-11 10:15] VITALS: O2SAT 95
--- NOTE | 2021-03-11 11:56 | EKG ---
Test Date: 2021-03-10 Test Time: 17:21:48 Banking Representative: MARTI MEASUREMENT RESULTS: Intervals: Rate: 64 [place]: 148 QRSD: 80 QT: 396 QTc: 408 [place]: P: 52 [place]: 148 QRS: 80 T: 59 INTERPRETIVE STATEMENTS: Normal sinus rhythm with sinus arrhythmia Normal ECG Compared to ECG 03/10/2021 12:36:30 Uncertain supraventricular rhythm no longer present Left-axis deviation no longer present Left bundle-branch block no longer present Electronically Signed On 03-11-21 11:53:51 CDT by Yamil Tejeda
--- NOTE | 2021-03-11 12:24 | RAD REPORT ---
EXAM DESCRIPTION: MRI - Brain W/Wo Cont - 03/11/2021 11:47 am CLINICAL HISTORY: TIA Headache, drowsiness, CVA symptomology COMPARISON: MRA Head Wo Cont dated 03/11/2021 TECHNIQUE: Multi-sequence, multiplanar MR imaging of the brain was performed with contrast. FINDINGS: No intracranial hemorrhage, hydrocephalus, or extra-axial fluid collection. No edema or sh ift of midline structures. No intracranial mass. DWI is negative for acute CVA. The midline structures are normally formed. Mastoid air cells and paranasal sinuses are clear. Post-contrast images show no abnormal enhancement to suggest tumor or infection. IMPRESSION: No acute or concerning intracranial abnormalities. No pathologic post-contrast enhancement suspected.
--- NOTE | 2021-03-11 12:26 | RAD REPORT ---
EXAM DESCRIPTION: MRI - MRA Head Wo Cont - 03/11/2021 11:46 am CLINICAL HISTORY: TIA CVA COMPARISON: Head Brain Wo Cont dated 03/10/2021 FINDINGS: 3D noncontrast [id number] MR angiography of the [place] was performed. No aneurysm, flow-limiting stenosis or vascular malformation is seen. Forward flow seen in codominant vertebral arteries. The visualized dural venous sinuses appear patent. IMPRESSION: No significant flow abnormality of the [place] is identified.
--- NOTE | 2021-03-11 12:33 | RAD REPORT ---
EXAM DESCRIPTION: MRI - MRA Neck W/Wo Cont - 03/11/2021 11:46 am CLINICAL HISTORY: TIA Headache, drowsiness COMPARISON: Carotid Artery Bilateral dated 03/11/2021 FINDINGS: Contrast enhance 2D [id number] MR angiography of the neck vessels was performed. A left aortic arch is present. Both common carotid arteries and subclavian arteries are widely patent. No evidence of internal carot id artery stenosis. Antegrade flow is seen in both vertebral arteries. IMPRESSION: No significant flow abnormality is seen of the neck vessels.
--- NOTE | 2021-03-11 12:40 | P.DS ---
Admission Date: 03/10/21 Discharge Date: 03/11/21 Disposition: ROUTINE DISCHARGE Discharge Condition: FAIR Reason for Admission: presyncope Consultations: Cardiology-Dr. Tejeda. - Problems (1) TIA (transient ischemic attack) Current Visit: Yes Status: Acute (2) SVT (supraventricular tachycardia) Current Visit: Yes Status: Acute (3) Hyperlipidemia Current Visit: Yes Status: Acute (4) Gout Current Visit: Yes Status: Acute Brief History of Present Illness: This 1-year-old gentleman with a history of gout presented to the emergency department with a complaint of sudden onset of left-sided numbness and weakness, aphasia. Symptoms preceded by an episode of dizziness and palpitations and shortness of breath. His EKG in the emergency department showed SVT with aberrant conduction versus junctional rhythm or slow VT. Her symptoms resolved in the ED. Cardiology was contacted, patient was hospitalized for further management. Hospital Course: Patient placed under observation, troponin trended negative. MRI of the brain did not show any acute CVA. MRA head and neck unremarkable, echocardiogram done was done. He was briefly on heparin drip. Other workup for CVA/TIA unremarkable. Triglyceride and LDL elevated. Patient placed on Lipitor. Patient was asymptomatic during the hospital stay. Patient seen and evaluated by cardiology-Dr. Tejeda, no other recommendation except low dose beta-dae for the transient SVT. Patient clinically stable for discharge. He is informed to follow with Dr. Tejeda as an outpatient for the SVT. Vital Signs/Physical Exam: Temp Pulse Resp BP Pulse Ox 97.7 F 58 17 124/84 100 03/11/21 08:00 03/11/21 08:00 03/11/21 08:00 03/11/21 08:00 03/11/21 08:00 General: Alert, In no apparent distress, Oriented x3 HEENT: Mucous membr. moist/pink Neck: Supple, 2+ carotid pulse no bruit, JVD not distended Respiratory: Clear to auscultation bilaterally, Normal air movement Cardiovascular: No edema, Regular rate/rhythm, Normal S1 S2 Capillary refill: <2 Seconds Gastrointestinal: Normal bowel sounds, Soft and benign, Non-distended, No tenderness Musculoskeletal: No swelling, No tenderness Integumentary: No rashes, No erythema Neurological: Normal speech, Normal strength at 5/5 x4 extr, Cranial nerves 3-12 intact Laboratory Data at Discharge: WBC 6.40 K/uL (4.3-10.9) 03/11/21 05:59 Hgb 14.8 g/dL (13.6-17.9) 03/11/21 05:59 Hct 43.5 % (39.6-49.0) 03/11/21 05:59 Plt Count 189 K/uL (152-406) 03/11/21 05:59 APTT Cancelled 03/11/21 21:28 Sodium 143 mmol/L (136-145) 03/11/21 05:59 Potassium 4.2 mmol/L (3.5-5.1) 03/11/21 05:59 BUN 13 mg/dL (7-18) 03/11/21 05:59 Creatinine 1.05 mg/dL (0.55-1.3) 03/11/21 05:59 Glucose 112 mg/dL (74-106) H 03/11/21 05:59 Phosphorus 2.6 mg/dL (2.5-4.9) 03/11/21 05:59 Magnesium 2.2 mg/dL (1.8-2.4) 03/11/21 05:59 Total Bilirubin 0.6 mg/dL (0.2-1.0) 03/11/21 05:59 AST 29 U/L (15-37) 03/11/21 05:59 ALT 54 U/L (12-78) 03/11/21 05:59 Alkaline Phosphatase 53 U/L (45-117) 03/11/21 05:59 Troponin I < 0.02 ng/mL (0.0-0.045) 03/11/21 01:37 Triglycerides 180 mg/dL (<150) H 03/11/21 05:59 Cholesterol 202 mg/dL (<200) H 03/11/21 05:59 HDL Cholesterol 42 mg/dL (40-60) 03/11/21 05:59 Cholesterol/HDL Ratio 4.81 03/11/21 05:59 Home Medications: Allopurinol 300 mg PO DAILY PRN 03/11/21 Aspirin [Aspirin EC] 81 mg PO DAILY #30 tablet. 03/11/21 Atorvastatin Calcium [Lipitor*] 20 mg PO BEDTIME #30 tab 03/11/21 Folic Acid 1 mg PO DAILY #30 tablet 03/11/21 Metoprolol Tartrate 25 mg PO BID #60 tablet 03/11/21 New Medications: Aspirin [Aspirin EC] 81 mg PO DAILY #30 tablet. Folic Acid 1 mg PO DAILY #30 tablet Atorvastatin Calcium [Lipitor*] 20 mg PO BEDTIME #30 tab Metoprolol Tartrate 25 mg PO BID #60 tablet Diet: AHA Activity: Ad dana Followup: Yamil Tejeda MD [ACTIVE - CAN ADMIT] - 1 Week Unknown,U [Primary Care Provider] -
--- NOTE | 2021-03-11 13:07 | ECHO ---
HEIGHT: 6 ft 3 in WEIGHT: 249 lb 9.6 oz DATE OF STUDY: 03/11/[address]: Emil Huff 2-DIMENSIONAL: YES M.MODE: YES DOPPLER: YES COLOR FLOW: YES TDS: NO PORTABLE: NO DEFINITY: NO BUBBLE STUDY: NO DIAGNOSIS: SYNCOPE CARDIAC HISTORY: CATHERIZATION: SURGERY: PROSTHETIC VALVE: PACEMAKER: MEASUREMENTS (cm) DIASTOLIC (NORMALS) SYSTOLIC (NORMALS) IVSd 1.0 (0.6-1.2) LA Diam 2.8 (1.9-4.0) LVEF 66% LVIDd 4.9 (3.5-5.7) LVIDs 3.1 (2.0-3.5) %FS 37% LVPWd 1.0 (0.6-1.2) Ao Diam 3.6 (2.0-3.7) 2 DIMENSIONAL ASSESSMENT: RIGHT ATRIUM: NORMAL LEFT ATRIUM: NORMAL RIGHT VENTRICLE: NORMAL LEFT VENTRICLE: NORMAL TRICUSPID VALVE: NORMAL MITRAL VALVE: NORMAL PULMONIC VALVE: NORMAL AORTIC VALVE: NORMAL PERICARDIAL EFFUSION: NONE AORTIC ROOT: NORMAL LEFT VENTRICULAR WALL MOTION: NORMAL DOPPLER/COLOR FLOW: NORMAL COMMENTS: NORMAL 2D ECHOCARDIOGRAM WITH DOPPLER. NO WALL MOTION ABNORMALITY. NO EFFUSION. TECHNOLOGIST: Aleksandr ELLIS
--- NOTE | 2021-03-11 13:16 | RAD REPORT ---
EXAM DESCRIPTION: US - CP - 03/11/2021 12:13 pm CLINICAL HISTORY: TIA COMPARISON: MRA Neck W/Wo Cont dated 03/11/2021 TECHNIQUE: Real-time sonographic evaluation of bilateral carotid and vertebral systems was performed . Oliver scale and Doppler interrogation were performed with waveform tracing bilaterally. FINDINGS: Normal high resistance waveforms are noted in both external carotid arteries. The common c arotid arteries and internal carotid arteries show normal low resistance waveforms. No significant plaque formation is seen. Peak systolic and end diastolic velocity values and the ICA/ CCA ratios are in the non-hemodynamically significant range. No significant asymmetry in the velocit y values of the bilateral common carotid and internal carotid arteries. Antegrade flow seen in both vertebral arteries. Velocity values and ratios were recorded and are retained in the patient's imaging records. IMPRESSION: No significant atherosclerotic changes noted. No evidence of a hemodynamically significant stenosis.
[2021-03-11 13:40] VITALS: BP 115/91; TEMP 98.3
[2021-03-11] MEDS ORDERED: ATORVASTATIN 20 MG TAB PO SCH (21:00)
--- NOTE | 2021-03-13 11:58 | CON ---
Date of Consultation: 03/11/2021 Reason For Consultation: Arrhythmia and TIA. History Of Present Illness: Mr. Frazier is a 30-year-old white male without any previous past medic al history. Denied any congenital heart disease when he was young. Denied any excessive use of caff eine or alcohol or tobacco or drugs. His only past medical history is gout. He takes allopurinol fo r that. He came in with symptoms of paresthesias in both arm and legs, dizziness, shortness of breat h, palpitation. Lasted few hours. When he came to the emergency room, his rhythm was a wide-complex rhythm that could be an SVT with aberrancy. It could be a slow ventricular tachycardia versus junct ional rhythm. The EKG was discussed with [facility] in [place]. There opinion was t he same as mine. He converted to sinus rhythm on his own and his symptoms completely went away. Past Medical History: As stated above. Allergies: NONE. Medications: Include allopurinol. Review of Systems: Negative. Social History: Negative. Family History: Negative. Physical Examination: Vital Signs: Stable. Afebrile. Heart rate is sinus delphine at 55. HEENT: Negative. Neck: Supple. No bruit. Chest: Clear. Cardiac: Revealed regular rhythm and rate. No murmurs, gallops, rubs. Abdomen: Benign. Extremities: Revealed no clubbing, cyanosis, or edema. Diagnostic Data: EKG as stated earlier. Chest x-ray was normal. Carotid artery ultrasound, brain M RI and neck MRA were all normal. Echocardiogram that was done on the day I saw the patient was perfe ctly normal. Impression And Plan: Arrhythmia causing significant symptoms, unknown whether this is ventricular ta chycardia or supraventricular tachycardia or junctional rhythm. Nevertheless, I think he needs to be evaluated by [facility] in [place]. I think a low dose beta-dae is reasonable. He may need further cardiac workup including EP study or maybe a cardiac MRI to make sure were not m issing anything else from a heart standpoint. This was discussed with the patient. He is welcome to come to see me in the office or go to [place] [employer]. He can go home otherwise. KAMRYN/PAVEL Voice ID: [id number] Report ID: [id number]
== END 2021-03-11 17:45 | disposition home or self-care (01) ==
LOC: ER 19:22 → 2ND 23:30 → INTOOBSV 23:30
PROVIDERS: ADMIT Internal Medicine; ATTEND Internal Medicine
DX: G45.9 Transient cerebral ischemic attack, unspecified (principal); I47.1 Supraventricular tachycardia; E78.5 Hyperlipidemia, unspecified; M10.9 Gout, unspecified; Z20.822 Contact with and (suspected) exposure to COVID-19
CPT/HCPCS: 93005; 93306; 85025; 36415; 83735; 84100; 80061; 80307 ×8; 85730 ×3; 84443; 81003; 83036; 84484 ×2; 84439; 80053; 93880; 70553; 70544; 70549; 94760 ×2; U0003; A9577; J1644 ×2; Q5118; J7030; 96365; 96366; 99285